=== PATIENT | male | born 1955 | race Caucasian/White ===

== ENCOUNTER → 2017-03-27 | Day surgery (SDC) | payer OTHER ==
[~2017-03-27] VITALS: Ht 172.7 cm; Wt 88.5 kg
[~2017-03-27] MED LIST: /PRAV20TA PO; ALOG25TA PO; ASPI1TAB PO; ASPI81TA7 PO; ATOR40TA75 PO; CARV25TA PO; COUM1TAB17 PO; GLIP1TAB49 PO; INVO100T PO; LIDOCAINE 2% INJ 100 MG/5 ML SDV (FOR ANES.) As Ordered ONE; LISI-538 PO; LOPR50TA PO; LR 1,000 ML IV ONE; METF10004 PO; OMEP20CA3 PO; PROPOFOL 200 MG/20 ML VIAL As Ordered ONE; SPIR25TA2 PO; WARF-18 PO; ZEST10TA4 PO; ePHEDrine INJ 50 MG/ML VIAL As Ordered ONE
[2017-03-27 12:38] LABS: INR 0.99
--- NOTE | 2017-03-27 14:19 | ROOR ---
Patient Name: Wild Baeza Procedure Date: 03/27/2017 12:35 PM Date of : 1955 Age: 62 Gender: Male Note Status: Finalized Procedure: Upper GI endoscopy Indications: Heartburn Providers: Oscar HERMAN MD Referring MD: KRISTA SANTOS MD Requesting Provider: Medicines: Monitored Anesthesia Care Complications: No immediate complications. Procedure: Pre-Anesthesia Assessment: - The heart rate, respiratory rate, oxygen saturations, blood pressure, adequacy of pulmonary ventilation, and response to care were monitored throughout the procedure. The Endoscope was introduced through the mouth, and advanced to the second part of duodenum. The upper GI endoscopy was accomplished without difficulty. The patient tolerated the procedure well. Findings: The esophagus was normal. The stomach was normal. The examined duodenum was normal. Impression: - Normal esophagus. - Normal stomach, small hiatal hernia. - Normal examined duodenum. - No specimens collected. Recommendation: - Continue present medications. Oscar Herman MD Oscar HERMAN MD 03/27/2017 2:18:48 PM This report has been signed electronically. Number of Addenda: 0 Note Initiated On: 03/27/2017 12:35 PM Estimated Blood Loss: Estimated blood loss: none.
--- NOTE | 2017-03-27 14:24 | ROOR ---
Patient Name: Wild Baeza Procedure Date: 03/27/2017 12:34 PM Date of : 1955 Age: 62 Gender: Male Note Status: Finalized Procedure: Colonoscopy Indications: Screening for colorectal malignant neoplasm Providers: Oscar HERMAN MD Referring MD: KRISTA SANTOS MD Requesting Provider: Medicines: Monitored Anesthesia Care Complications: No immediate complications. Procedure: Pre-Anesthesia Assessment: - The heart rate, respiratory rate, oxygen saturations, blood pressure, adequacy of pulmonary ventilation, and response to care were monitored throughout the procedure. The Colonoscope was introduced through the anus and advanced to the cecum, identified by appendiceal orifice and ileocecal valve. The colonoscopy was performed without difficulty. The patient tolerated the procedure well. The quality of the bowel preparation was fair. Findings: The perianal and digital rectal examinations were normal. Three semi-pedunculated polyps were found in the recto-sigmoid colon and distal sigmoid colon. The polyps were 6 to 8 mm in size. These polyps were removed with a cold snare. Resection and retrieval were complete. To prevent bleeding after the polypectomy, two hemostatic clips were successfully placed. There was no bleeding at the end of the procedure. Multiple small and large-mouthed diverticula were found in the sigmoid colon and descending colon. There was evidence of diverticular spasm. Internal hemorrhoids were found during retroflexion. The hemorrhoids were medium-sized. The exam was otherwise without abnormality on direct and retroflexion views. Impression: - Preparation of the colon was fair. - Three 6 to 8 mm polyps at the recto-sigmoid colon and in the distal sigmoid colon, removed with a cold snare. Resected and retrieved. Clips were placed. - Moderate to severe diverticulosis in the sigmoid colon and in the descending colon. There was evidence of diverticular spasm. - Internal hemorrhoids. - The examination was otherwise normal on direct and retroflexion views. Recommendation: - Await pathology results. - Telephone endoscopist for pathology results in 2 weeks. - If the pathology report reveals adenomatous tissue, then repeat the colonoscopy for surveillance in 3 years. - If the pathology report indicates hyperplastic polyp, then repeat colonoscopy for screening purposes in 10 years. - Resume Coumadin (warfarin) at prior dose tomorrow. Refer to managing physician for further adjustment of therapy. Oscar Herman MD Oscar HERMAN MD 03/27/2017 2:23:47 PM This report has been signed electronically. Number of Addenda: 0 Note Initiated On: 03/27/2017 12:34 PM Estimated Blood Loss: Estimated blood loss: none.
[2017-03-27 15:05] VITALS: BP 125/73
== END | disposition home or self-care (01) ==
LOC: M SDC 11:48
PROVIDERS: ATTEND Internal Medicine Gastroenterology
DX: Z12.11 Encounter for screening for malignant neoplasm of colon (principal); D12.7 Benign neoplasm of rectosigmoid junction; D12.5 Benign neoplasm of sigmoid colon; K57.30 Diverticulosis of large intestine without perforation or abscess without bleeding; K64.8 Other hemorrhoids; R12 Heartburn; I25.10 Atherosclerotic heart disease of native coronary artery without angina pectoris; I25.2 Old myocardial infarction; I10 Essential (primary) hypertension; E78.00 Pure hypercholesterolemia, unspecified; E11.9 Type 2 diabetes mellitus without complications; D64.9 Anemia, unspecified; D68.51 Activated protein C resistance; R06.02 Shortness of breath; M12.9 Arthropathy, unspecified; I69.998 Other sequelae following unspecified cerebrovascular disease; N40.0 Benign prostatic hyperplasia without lower urinary tract symptoms; Z79.899 Other long term (current) drug therapy; Z79.82 Long term (current) use of aspirin; Z79.01 Long term (current) use of anticoagulants; Z79.84 Long term (current) use of oral hypoglycemic drugs; Z95.5 Presence of coronary angioplasty implant and graft; Z86.718 Personal history of other venous thrombosis and embolism; Z86.12 Personal history of poliomyelitis; Z87.891 Personal history of nicotine dependence

== ENCOUNTER → 2017-08-10 | Outpatient (REF) | payer OTHER ==
[~2017-08-10] MED LIST changes: -LIDOCAINE 2% INJ 100 MG/5 ML SDV (FOR ANES.) As Ordered ONE; -LR 1,000 ML IV ONE; -PROPOFOL 200 MG/20 ML VIAL As Ordered ONE; -ePHEDrine INJ 50 MG/ML VIAL As Ordered ONE
== END ==
LOC: M LAB REF 18:45
PROVIDERS: ATTEND Internal Medicine Endocrinology, Diabetes & Metabolism
DX: E04.1 Nontoxic single thyroid nodule (principal)

== ENCOUNTER → 2017-08-15 | Outpatient (REF) | payer OTHER | LOC: M LAB REF 16:55 | PROVIDERS: ATTEND Physician Assistant Medical | DX: J11.1 Influenza due to unidentified influenza virus with other respiratory manifestations (principal) ==

== ENCOUNTER → 2017-12-23 | Outpatient (CLI) | payer OTHER | LOC: M LAB 15:10 | DX: E87.5 Hyperkalemia (principal) | CPT/HCPCS: 84132 ==

== ENCOUNTER → 2018-04-11 | Outpatient (CLI) | payer OTHER | LOC: M RAD 07:43 | DX: K76.0 Fatty (change of) liver, not elsewhere classified (principal) | CPT/HCPCS: 76705 ==

== ENCOUNTER 2018-09-25 15:15 | Emergency (ER) | payer OTHER ==
[~2018-09-25] VITALS: Ht 170.2 cm; Wt 86.4 kg
[~2018-09-25 15:15] MED LIST changes: +ANORO; -GLIP1TAB49 PO; +GLIP5TAB20 PO; +SPIR-10 PO; -SPIR25TA2 PO; +TAMSULOSIN PO; +ZOFR4TAB14 PO
[2018-09-25] MEDS ORDERED: STEG15TA (15:24)
[2018-09-25 16:04] LABS: INFLUENZA A AMPLIFICATION NEGATIVE (NEGATIVE); INFLUENZA B AMPLIFICATION NEGATIVE (NEGATIVE)
[2018-09-25] MEDS ORDERED: NS 1,000 ML IV ONE ×2 (17:00→20:15)
[2018-09-25] MEDS ORDERED: ONDANSETRON 4MG/2ML VIAL (J2405) IV ONE (17:00)
[2018-09-25 17:15] LABS: BASO % 0.4 % (0.0-1.0); EOS # 0.1 10^3/uL (0.0-0.50); EOS % 1.1 % (0.0-3.0); HEMATOCRIT 39.8 % (42.0-52.0); HEMOGLOBIN 13.8 g/dl (13.5-17.5); LYMPH # 1.3 10^3/uL (1.5-4.5); LYMPH % 16.1 % (24.0-44.0); MEAN CORPUSCULAR HEMOGLOBIN 33.3 pg (27.0-33.0); MEAN CORPUSCULAR HGB CONC 34.7 g/dl (32.0-36.5); MEAN CORPUSCULAR VOLUME 95.9 fl (80.0-96.0); MONO # 0.7 10^3/uL (0.0-0.8); MONO % 8.6 % (0.0-5.0); NEUTROPHILS % 73.3 % (36.0-66.0); PLATELET COUNT, AUTOMATED 244 10^3/uL (150-450); RED BLOOD COUNT 4.15 10^6/uL (4.30-6.10); WHITE BLOOD COUNT 8.2 10^3/uL (4.0-10.0)
[2018-09-25 18:01] LABS: ALBUMIN 4.1 GM/DL (3.2-5.2); BILIRUBIN,DIRECT 0.2 MG/DL (0.0-0.2); BILIRUBIN,TOTAL 0.5 MG/DL (0.2-1.0); CALCIUM LEVEL 8.7 MG/DL (8.8-10.2); CREATININE FOR GFR 1.3 MG/DL (0.70-1.30); GLOMERULAR FILTRATION RATE 59.2 (>49); POTASSIUM SERUM 5.4 MEQ/L (3.5-5.1)
[2018-09-25] MEDS ORDERED: ISOVUE-370 76% 100ML VIAL (Q9967) As Ordered ONE (18:25)
[2018-09-25 20:20] VITALS: BP 123/64
[2018-09-25] MEDS ORDERED: ONDA4TAB6 PO (20:27)
[2018-09-25] MEDS ORDERED: DICY1CAP8 PO (20:27)
[2018-09-25] MEDS ORDERED: DICYCLOMINE 10 MG CAP PO ONE (20:30)
--- NOTE | 2018-09-25 21:16 | REP ---
Clinical: Periumbilical and epigastric pain. Technique: Axial contrast enhanced images from the lung bases to the pubic symphysis using 100 ml Isovue 370 intravenous contrast material with coronal and sagittal re-formations. Comparison: 04/01/2018. Findings: Lung bases are clear. Visualized heart and pericardium normal. Diffuse fatty infiltration to the liver is appreciated with subtle scattered ill-defined areas of decreased density are concerning for underlying hepatocellular disease including metastatic disease. Spleen, pancreas, gallbladder, and kidneys are relatively normal / stable. A 2.8 cm left renal cyst is again identified. Bilateral adrenal nodules up to 1.8 cm in the left adrenal gland are nonspecific but remains stable and may represent atypical adenomas. The enteric system is without obstruction or acute inflammatory process. Normal terminal ileum and appendix are identified in the right lower quadrant. Diffuse colonic diverticulosis significantly involving the sigmoid colon is appreciated without acute diverticulitis. Pelvis demonstrates normal bladder and age appropriate prostate/seminal vesicles. No ascites. No significant intraperitoneal or retroperitoneal adenopathy. No free air. Abdominal aorta without aneurysm or dissection. Musculoskeletal structures are intact. Impression: 1. Fatty infiltration to the liver with subtle further hypodense lesions concerning for underlying hepatocellular disease including possible metastatic disease. 2. 2.8 cm left renal cyst. 3. Bilateral adrenal nodules are nonspecific but stable and may represent atypical adenomas. 4. Sigmoid diverticulosis without acute diverticulitis. 5. No ascites, inflammatory changes, or obvious adenopathy. Electronically Signed by Ozzy Garcia MD 09/25/2018 09:08 P
--- NOTE | 2018-09-26 13:02 | ED PDOC ---
Post-Departure Follow-Up dr loyd faxed formal report of ct abd/p for fu Horace Duarte MD Sep 26, 2018 13:02
== END 2018-09-25 20:40 | disposition home or self-care (01) ==
LOC: M ED 15:15
DX: J06.9 Acute upper respiratory infection, unspecified (principal); R10.9 Unspecified abdominal pain; B34.9 Viral infection, unspecified; R11.2 Nausea with vomiting, unspecified; R19.7 Diarrhea, unspecified; Z79.01 Long term (current) use of anticoagulants; Z79.82 Long term (current) use of aspirin; I25.2 Old myocardial infarction; I10 Essential (primary) hypertension; E78.5 Hyperlipidemia, unspecified; E11.9 Type 2 diabetes mellitus without complications; J44.9 Chronic obstructive pulmonary disease, unspecified; K21.9 Gastro-esophageal reflux disease without esophagitis; F17.200 Nicotine dependence, unspecified, uncomplicated
CPT/HCPCS: 74177; 80048; 80076; 81001; 83690; 85025; 87502; 96374; 99284; J2405; Q9967

== ENCOUNTER → 2018-12-28 | Outpatient (CLI) | payer OTHER ==
[~2018-12-28] MED LIST changes: -/PRAV20TA PO; -ASPI1TAB PO; +ASPI81TA26 PO; +DICY1CAP8 PO; +ONDA4TAB6 PO; +PRAV1TAB39 PO; +STEG15TA
[2018-12-28 14:45] LABS: APPEARANCE, URINE CLEAR (CLEAR); BACTERIA, URINE AUTO NEGATIVE (NEGATIVE); BILIRUBIN, URINE AUTO NEGATIVE (NEGATIVE); BLOOD, URINE BLOOD 1+ (NEGATIVE); COLOR, URINE YELLOW (YELLOW); GLUCOSE, URINE (UA) AUTO 3+ mg/dL (NEGATIVE); KETONE, URINE AUTO NEGATIVE (NEGATIVE); LEUKOCYTE ESTERASE, URINE AUTO NEGATIVE (NEGATIVE); NITRITE, URINE AUTO NEGATIVE (NEGATIVE); PROTEIN, URINE AUTO NEGATIVE (NEGATIVE); RBC, URINE AUTO 1 /HPF (0-3); SPECIFIC GRAVITY URINE AUTO 1.017 (1.002-1.035); SQUAMOUS EPITHELIAL CELL UR AU 0 /HPF (0-6); UROBILINOGEN, URINE AUTO 0.2 mg/dL (0.0-2.0); WBC, URINE AUTO 0 /HPF (0-3)
[2018-12-28 14:54] LABS: BASO # 0.1 10^3/uL (0.0-0.2); BASO % 0.6 % (0.0-1.0); EOS # 0.1 10^3/uL (0.0-0.50); EOS % 1.3 % (0.0-3.0); HEMATOCRIT 39.3 % (42.0-52.0); HEMOGLOBIN 13.3 g/dl (13.5-17.5); LYMPH # 1.1 10^3/uL (1.5-4.5); LYMPH % 13.1 % (24.0-44.0); MEAN CORPUSCULAR HEMOGLOBIN 32.6 pg (27.0-33.0); MEAN CORPUSCULAR HGB CONC 33.8 g/dl (32.0-36.5); MEAN CORPUSCULAR VOLUME 96.3 fl (80.0-96.0); MONO # 0.7 10^3/uL (0.0-0.8); NEUTROPHILS # 6.4 10^3/uL (1.8-7.7); NEUTROPHILS % 76.5 % (36.0-66.0); PLATELET COUNT, AUTOMATED 228 10^3/uL (150-450); RED BLOOD COUNT 4.08 10^6/uL (4.30-6.10); WHITE BLOOD COUNT 8.4 10^3/uL (4.0-10.0)
[2018-12-28 15:26] LABS: ALBUMIN 3.8 GM/DL (3.2-5.2); ALT/SGPT 37 U/L (12-78); BILIRUBIN,TOTAL 0.3 MG/DL (0.2-1.0); BLOOD UREA NITROGEN 25 MG/DL (7-18); CALCIUM LEVEL 8.6 MG/DL (8.8-10.2); CARBON DIOXIDE LEVEL 25 MEQ/L (21-32); CHLORIDE LEVEL 107 MEQ/L (98-107); CHOLESTEROL LEVEL 181 MG/DL (<200); CHOLESTEROL RISK RATIO 3.175 (<5); CREATININE FOR GFR 1.09 MG/DL (0.70-1.30); FREE T4 1.15 NG/DL (0.76-1.46); GLOMERULAR FILTRATION RATE > 60.0 (>49); GLUCOSE, FASTING 125 MG/DL (70-100); HDL CHOLESTEROL 57 MG/DL (>40); LDL CHOLESTEROL 85 MG/DL (<100); NON-HDL-C 124 MG/DL; POTASSIUM SERUM 4.8 MEQ/L (3.5-5.1); SODIUM LEVEL 138 MEQ/L (136-145); TOTAL PROTEIN 6.6 GM/DL (6.4-8.2); TRIGLYCERIDES LEVEL 195 MG/DL (<150)
[2018-12-28 15:42] LABS: CREATININE, URINE 71.2 MG/DL; MALB URINE SIEMENS 13.2 MG/L; MAU/CREAT RATIO 18.5 MCG/MG (0.0-30.0)
[2018-12-28 16:04] LABS: HEMOGLOBIN A1c 6.4 %
== END ==
LOC: M LAB 13:58
PROVIDERS: ATTEND Family Medicine
DX: E04.1 Nontoxic single thyroid nodule (principal); E11.9 Type 2 diabetes mellitus without complications; E78.5 Hyperlipidemia, unspecified

== ENCOUNTER → 2018-12-28 | Outpatient (CLI) | payer OTHER | LOC: M LAB 14:02 | PROVIDERS: ATTEND Specialist | DX: N40.0 Benign prostatic hyperplasia without lower urinary tract symptoms (principal) ==

== ENCOUNTER → 2019-01-11 | Outpatient (CLI) | payer OTHER ==
--- NOTE | 2019-01-12 07:12 | REP ---
LOW-DOSE LUNG SCREENING CT: 01/11/2019. Clinical history: Nicotine dependence, uncomplicated. Comparison: 12/06/2017, low dose screening CT. Findings: Lung machado are well inflated. There is a peripheral bleb superior segment of the right lower lobe unchanged. Some minor areas of curvilinear scarring in the bases bilaterally are again seen. These are along the posterolateral basal segment of the right lower lobe with associated small blebs. No new finding, parenchymal nodule, pleural effusion, calcified pleural plaque, pleural-based mass. There are a couple of tiny pleural based calcifications suggesting granulomas in the right upper lobe unchanged. No evidence for bronchiectatic change. Sternotomy wires are seen. No gross bony abnormality on an acute basis. Impression: 1. Lung-RADS category 2, benign finding. No evidence of malignancy. Stable examination. Patients with this category of findings have less 1% chance of malignancy at the time of the scan. Recommend followup 1 year. Electronically Signed by Mendel Rabago MD 01/12/2019 11:36 A
== END ==
LOC: M RAD 14:15
PROVIDERS: ATTEND Internal Medicine Pulmonary Disease
DX: F17.290 Nicotine dependence, other tobacco product, uncomplicated (principal)

== ENCOUNTER 2019-06-03 12:42 | Emergency (ER) | payer MEDICARE, MEDICAID ==
[~2019-06-03] VITALS: Ht 172.7 cm; Wt 90.3 kg
[~2019-06-03 12:42] MED LIST changes: -OMEP20CA3 PO; +OMEP20CA4 PO
[2019-06-03] MEDS ORDERED: ONGL1TAB9 PO (13:20)
[2019-06-03] MEDS ORDERED: JARD1TAB PO (13:20)
[2019-06-03 14:01] LABS: HEMATOCRIT 40.5 % (42.0-52.0); HEMOGLOBIN 13.8 g/dl (13.5-17.5); MEAN CORPUSCULAR HGB CONC 34.1 g/dl (32.0-36.5); MEAN CORPUSCULAR VOLUME 96.9 fl (80.0-96.0); PLATELET COUNT, AUTOMATED 206 10^3/uL (150-450); RED BLOOD COUNT 4.18 10^6/uL (4.30-6.10); WHITE BLOOD COUNT 7.3 10^3/uL (4.0-10.0)
--- NOTE | 2019-06-03 14:08 | REP ---
PA and lateral chest: Comparison 03/06/2015. The lung machado are clear. The cardiac size is normal. The shweta, mediastinum, and skeletal structures are unremarkable. The previous right lung infiltrate and right pleural effusion have resolved. There are sternotomy wires, unchanged. Impression: Negative PA and lateral chest. Electronically Signed by Braydon Ramirez MD 06/03/2019 01:59 P
[2019-06-03 14:14] LABS: INR 2.21; PROTHROMBIN TIME 24.4 SECONDS (11.8-14.0)
[2019-06-03 14:24] LABS: ALBUMIN 3.7 GM/DL (3.2-5.2); BILIRUBIN,DIRECT 0.1 MG/DL (0.0-0.2); BILIRUBIN,TOTAL 0.4 MG/DL (0.2-1.0); MAGNESIUM LEVEL 1.4 MG/DL (1.8-2.4); TOTAL PROTEIN 6.9 GM/DL (6.4-8.2)
[2019-06-03 14:26] LABS: CK-MB VALUE MASS 7.5 NG/ML (<3.6); CPK CREATINE PHOSPHOKINASE 303 U/L (39-308); MB/CK RELATIVE INDEX 2.48 (< OR =4); TROPONIN I < 0.02 NG/ML (< 0.10)
[2019-06-03] MEDS ORDERED: NS 1,000 ML IV ONE (14:45)
[2019-06-03 16:57] VITALS: BP 129/78
--- NOTE | 2019-06-04 00:44 | ECGEPIP ---
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
== END 2019-06-03 16:59 | disposition home or self-care (01) ==
LOC: M ED 12:42
DX: E86.0 Dehydration (principal); R10.84 Generalized abdominal pain; R11.2 Nausea with vomiting, unspecified; R19.7 Diarrhea, unspecified; I25.2 Old myocardial infarction; E11.9 Type 2 diabetes mellitus without complications; I10 Essential (primary) hypertension; Z86.73 Personal history of transient ischemic attack (TIA), and cerebral infarction without residual deficits; K21.9 Gastro-esophageal reflux disease without esophagitis; K57.32 Diverticulitis of large intestine without perforation or abscess without bleeding; J44.9 Chronic obstructive pulmonary disease, unspecified; D68.2 Hereditary deficiency of other clotting factors; Z86.12 Personal history of poliomyelitis; Z85.828 Personal history of other malignant neoplasm of skin; Z95.1 Presence of aortocoronary bypass graft; Z95.5 Presence of coronary angioplasty implant and graft; F17.210 Nicotine dependence, cigarettes, uncomplicated; Z87.891 Personal history of nicotine dependence; Z79.82 Long term (current) use of aspirin; Z79.84 Long term (current) use of oral hypoglycemic drugs; Z79.01 Long term (current) use of anticoagulants; Z79.899 Other long term (current) drug therapy

== ENCOUNTER → 2019-09-09 | Outpatient (REF) ==
[~2019-09-09] MED LIST changes: +JARD1TAB PO; +OMEP1CAP73 PO; -OMEP20CA4 PO; +ONGL1TAB9 PO
== END ==
LOC: M LAB 10:46